=== PATIENT | male | born 1965 | race Caucasian/White ===

== ENCOUNTER 2018-06-05 07:53 | Day surgery (SDC) | payer MEDICARE, BC, MEDICAID ==
[2018-06-05] MEDS ORDERED: LIDOCAINE 2% MDV (20MG/ML) 20ML VIAL IV ONE (07:54)
[2018-06-05] MEDS ORDERED: PROPOFOL 10 MG/ML VIAL IV ONE (07:54)
[2018-06-05] MEDS ORDERED: FENTANYL PF 100MCG/2ML VIAL IV ONE (07:54)
--- NOTE | 2018-06-06 12:40 | Operative Note ---
DATE OF SURGERY: 06/05/2018 OPERATION: ESOPHAGOGASTRODUODENOSCOPY. PREOPERATIVE DIAGNOSIS: Recurrent hiccups and questionable esophageal spasms. POSTOPERATIVE DIAGNOSIS: Large hiatal hernia with associated Avery's lines. PROCEDURE: After informed consent was obtained from the patient's family, he was placed in the left lateral decubitus position in the endoscopy suite and was sedated. A pediatric bite block had been placed as well. A well-lubricated [id number] gastroscope was placed in the posterior oropharynx and under direct visualization passed to the proximal esophagus. The endoscope was advanced through the proximal, mid, and distal esophagus. The GE junction was unremarkable. There was a large hiatal hernia with associated Avery's lines. There was no esophagitis readily identified. The body and antrum were unremarkable. The pylorus, duodenal bulb, and sweep were unremarkable. J-turn views of the proximal stomach revealed Avery's lines and large hiatal hernia. The endoscope was straightened and retracted from the patient with no new findings or abnormalities were identified. RECOMMENDATIONS: I would suggest the patient be on a daily proton pump inhibitor. As always, thank you for allowing me to participate in the healthcare of your patients. CC: Dr. Deshaun SHEFFIELD
== END 2018-06-05 09:29 | disposition home or self-care (01) ==
LOC: HOP 07:53
PROVIDERS: ATTEND Internal Medicine Gastroenterology
DX: R06.6 Hiccough (principal); K44.9 Diaphragmatic hernia without obstruction or gangrene; R56.9 Unspecified convulsions
CPT/HCPCS: 43235; 00731; J3010